=== PATIENT | female | born 1990 | race Caucasian/White ===

== ENCOUNTER 2016-11-13 11:12 | Emergency (ER) | payer OTHER ==
[~2016-11-13] VITALS: Ht 165.1 cm; Wt 62.9 kg
[~2016-11-13 11:12] MED LIST: ALPR.25 PO; OMEP20TA PO
[2016-11-13 11:20] VITALS: BP 114/87; PULSE 80; RESP 16; TEMP 98.4; O2SAT 97
[2016-11-13 12:06] LABS: AUTOMATED NEUTROPHIL # 8.7 TH/MM3 (1.8-7.7); BASOPHIL % 0.3 % (0.0-2.0); EOSINOPHIL # 0.1 TH/MM3 (0-0.4); EOSINOPHIL % 0.9 % (0.0-4.0); HEMATOCRIT 37.9 % (35.0-46.0); HEMO FLAGS DIFF FINAL; LYMPH % 14.7 % (9.0-44.0); LYMPHOCYTE # 1.6 TH/MM3 (1.0-4.8); MEAN CELL VOLUME 88.7 FL (80.0-100.0); MEAN CORPUSCULAR HEMOGLOBIN 30.7 PG (27.0-34.0); MEAN CORPUSCULAR HGB CONC 34.6 % (32.0-36.0); MONO % 3.1 % (0.0-8.0); PLATELET COUNT 291 TH/MM3 (150-450); RED BLOOD COUNT 4.27 MIL/MM3 (4.00-5.30); RED CELL DISTRIBUTION WIDTH 11.8 % (11.6-17.2); WHITE BLOOD COUNT 10.7 TH/MM3 (4.0-11.0)
--- NOTE | 2016-11-13 12:24 | PD ---
HPI Chief Complaint: ENT Complaint Time Seen by Provider: 11:28 Travel History International Travel<30 days: No Contact w/Intl Traveler<30days: No Traveled to known affect area: No History of Present Illness HPI 25 year-old female presents with bleeding from her right nose intermittently over the past 2 days. She denies other concurrent complaints. She states that she had balloon sinus surgery with Dr. Guerrero about a month ago to help with her breathing. She states that she's not on any blood thinner medications. She states she went to his office today and the staff told her to come to the emergency room. PFSH Past Medical History Anxiety: Yes Cancer: No Cardiovascular Problems: No Diabetes: No Diminished Hearing: No Endocrine: No Gastrointestinal Disorders: No Genitourinary: No Hepatitis: No Hiatal Hernia: No Hypertension: No Immune Disorder: No Musculoskeletal: No Neurologic: No Psychiatric: Yes (ANXIETY) Reproductive: Yes Respiratory: No Thyroid Disease: No Tetanus Vaccination: Unknown Influenza Vaccination: No ?: Not LMP: 1 week ago Past Surgical History Oral Surgery: Yes (WISDOM TEETH EXTRACTED) Other Surgery: Yes (Balloon Sinus Plasty) Social History Alcohol Use: Yes ("it depends" once a week, sometimes more) Tobacco Use: Yes (when drinking) Substance Use: No Allergies-Medications (Allergen,Severity, Reaction): Coded Allergies: No Known Allergies (Unverified , 11/13/16) Reported Meds & Prescriptions Reported Meds & Active Scripts Active Reported Xanax (Alprazolam) 0.25 Mg Tab 0.25 Mg PO BID PRN Review of Systems Except as stated in HPI: all other systems reviewed are Neg Physical Exam Narrative GENERAL: Well-nourished, well-developed patient. Well-appearing SKIN: Warm and dry. HEAD: Normocephalic and atraumatic. EYES: No injection or drainage. ENT: No nasal drainage noted. Dry blood noted to right nare with small oozing intermittently noted on tissue, dry blood noted to left naris anteriorly; no blood in posterior oropharynx NECK: Supple, trachea midline. CARDIOVASCULAR: Regular rate and rhythm RESPIRATORY: No increased effort. No accessory muscle use. NEUROLOGICAL: Awake and alert. Motor and sensory grossly within normal limits. Normal speech. Data Data Last Documented VS Vital Signs Date Time Temp Pulse Resp B/P Pulse Ox O2 Delivery O2 Flow Rate FiO2 11/13/16 11:20 98.4 80 16 114/87 97 Orders Complete Blood Count With Diff (11/13/16 11:34) Basic Metabolic Panel (Bmp) (11/13/16 11:34) Act Partial Throm Time (Ptt) (11/13/16 11:34) Prothrombin Time / Inr (Pt) (11/13/16 11:34) Iv Access Insert/Monitor (11/13/16 11:34) Labs Laboratory Tests Test 11/13/16 11:49 White Blood Count 10.7 TH/MM3 Red Blood Count 4.27 MIL/MM3 Hemoglobin 13.1 GM/DL Hematocrit 37.9 % Mean Corpuscular Volume 88.7 FL Mean Corpuscular Hemoglobin 30.7 PG Mean Corpuscular Hemoglobin 34.6 % Concent Red Cell Distribution Width 11.8 % Platelet Count 291 TH/MM3 Mean Platelet Volume 8.4 FL Neutrophils (%) (Auto) 81.0 % Lymphocytes (%) (Auto) 14.7 % Monocytes (%) (Auto) 3.1 % Eosinophils (%) (Auto) 0.9 % Basophils (%) (Auto) 0.3 % Neutrophils # (Auto) 8.7 TH/MM3 Lymphocytes # (Auto) 1.6 TH/MM3 Monocytes # (Auto) 0.3 TH/MM3 Eosinophils # (Auto) 0.1 TH/MM3 Basophils # (Auto) 0.0 TH/MM3 CBC Comment DIFF FINAL Differential Comment Prothrombin Time 10.5 SEC Prothromb Time International 1.0 RATIO Ratio Activated Partial 25.9 SEC Thromboplast Time Sodium Level 141 MEQ/L Potassium Level 4.0 MEQ/L Chloride Level 106 MEQ/L Carbon Dioxide Level 27.6 MEQ/L Anion Gap 7 MEQ/L Blood Urea Nitrogen 13 MG/DL Creatinine 0.81 MG/DL Estimat Glomerular Filtration 87 ML/MIN Rate Random Glucose 89 MG/DL Calcium Level 9.3 MG/DL [facility] Medical Decision Making Medical Screen Exam Complete: Yes Emergency Medical Condition: Yes Medical Record Reviewed: Yes (pmh confirmed) Interpretation(s) CBC & BMP Diagram 11/13/16 11:49 Differential Diagnosis Anterior epistaxis, anemia, hypercoagulable Narrative Course Will check blood work and discuss with her ear nose and throat physician On recheck patient states her bleeding has significantly stopped. Discussed with options of packing versus observation and she prefers to monitor symptoms and follow with her physician on recheck bleeding resolved, with clot in right nare, will go to dr guerrero's office for revaluation, given return instructions Physician Communication Physician Communication dr guerrero states can pack if needed and will talk with staff and can follow in 2days if heavy bleeding or if bleeding stopping can see in office dr guerrero called back and will see this afternoon as patient preferring to hold on packing Diagnosis Primary Impression: Epistaxis Patient Instructions: General Instructions Additional Instructions: go straight to dr guerrero's office for evaluation, return as needed, apply direct pressure if bleeding recurs Med/Other Pt SpecificInfo: No Change to Meds Disposition: 01 DISCHARGE HOME Condition: Stable Peggy Mckeon MD Nov 13, 2016 12:24
[2016-11-13 12:26] LABS: BICARBONATE 27.6 MEQ/L (21.0-32.0)
[2016-11-13 12:27] LABS: APTT (PATIENT) 25.9 SEC (24.3-30.1); PROTHROMBIN TIME - PATIENT 10.5 SEC (9.8-11.6)
== END 2016-11-13 13:04 | disposition home or self-care (01) ==
LOC: PHED 11:12
DX: R04.0 Epistaxis (principal); Z72.0 Tobacco use
CPT/HCPCS: 80048; 85025; 85610; 85730; 99283